=== PATIENT | male | born 1980 ===

== ENCOUNTER 2021-08-19 07:19 | Day surgery (SDC) | payer OTHER ==
[~2021-08-19] VITALS: Ht 175.3 cm; Wt 90.7 kg
[2021-08-19] MEDS ORDERED: PERCOCET 5-3251 EACH PO (16:01)
[2021-08-19] MEDS ORDERED: NEURONTIN600 M1 PO (16:01)
[2021-08-19] MEDS ORDERED: POLY119PG PO (16:01)
== END 2021-08-19 18:50 | disposition home or self-care (01) ==
LOC: CIR.AMB 07:19
PROVIDERS: ATTEND Surgery
DX: K40.20 Bilateral inguinal hernia, without obstruction or gangrene, not specified as recurrent (principal); Z86.16 Personal history of COVID-19; Z20.822 Contact with and (suspected) exposure to COVID-19

== ENCOUNTER 2021-08-25 13:04 | Emergency (ER) | payer OTHER ==
[~2021-08-25] VITALS: Ht 175.3 cm; Wt 90.7 kg
[~2021-08-25 13:04] MED LIST: NEURONTIN600 M1 PO; PERCOCET 5-3251 EACH PO; POLY119PG PO
== END 2021-08-25 16:01 | disposition home or self-care (01) ==
LOC: ER 13:04
DX: N50.812 Left testicular pain (principal); N50.811 Right testicular pain; Z98.890 Other specified postprocedural states